=== PATIENT | male | born 1985 | race Caucasian/White ===

== ENCOUNTER 2023-01-04 09:11 | Outpatient (CLI) | payer BC, SELFPAY ==
--- NOTE | ~2023-01-04 | US_ITS ---
EXAMINATION: US abdomen complete DATE: 01/04/2023 10:26 INDICATION: R10.9 - Unspecified abdominal pain TECHNIQUE: Multiple grayscale and Doppler ultrasound images of the abdomen were obtained. COMPARISON: None available. FINDINGS: The visualized portions of the pancreas are normal. The liver is normal with normal echogen icity and echotexture. No surface nodularity. Normal hepatopetal flow in the main portal vein. The ga llbladder is normal with no abnormal wall thickening, pericholecystic fluid or stones. The common kerrie e duct measures 6 mm. There was no sonographic Pierson sign. The visualized portions of the inferior v mliler cava are normal. Mild fusiform dilation of the proximal abdominal aorta, to 3.1 cm. The right kidney measures 12.9 x 5.6 x 6.9 cm. The left kidney measures 12.6 x 6.5 x 5.4 cm. The kidn eys demonstrate normal parenchymal echogenicity. There is no hydronephrosis. The spleen is normal in appearance and measures 12 cm. IMPRESSION: Mild fusiform dilation of the proximal aorta to 3.1 cm, consider ultrasound aorta follow-up in 3 year s. Otherwise normal abdominal ultrasound findings. Reviewed, dictated and finalized at location K. IMPRESSION: Mild fusiform dilation of the proximal aorta to 3.1 cm, consider ultrasound aor ta follow-up in 3 years. Otherwise normal abdominal ultrasound findings.
--- NOTE | ~2023-01-04 | XR_ITS ---
EXAMINATION: XR UGI w small bowel DATE: 01/04/2023 14:11 INDICATION: Abdominal pressure after eating and drinking. TECHNIQUE: The patient drank thick barium, gas-producing crystals, and thin barium. Fluoroscopy of th e esophagus, stomach, and small bowel was performed. Fluoroscopy exposure time was 1.6 minutes. Radio graphs of the abdomen were obtained. The total number of images was 386. COMPARISON: None. FINDINGS: UPPER GASTROINTESTINAL SERIES: There is no mass or stricture of the esophagus. Esophageal motility is normal. There is no hiatal her zuly. There was no gastroesophageal reflux with provocative maneuvers. The stomach shows a normal fold ing pattern. SMALL BOWEL SERIES: The small bowel shows a normal folding pattern. Specifically, the terminal ileum is normal. Transit t paul to the colon was 3 hours 15 minutes. IMPRESSION: 1. Normal upper gastrointestinal series. 2. Normal small bowel series. Reviewed, dictated and finalized at location A.
== END 2023-01-04 09:12 | disposition home or self-care (01) ==
PROVIDERS: PCP Internal Medicine; Visit Provider Internal Medicine
DX: R10.9 Unspecified abdominal pain (principal); I77.819 Aortic ectasia, unspecified site
CPT/HCPCS: 74240; 74248; 76700

== ENCOUNTER 2023-01-12 12:54 | Outpatient (CLI) | payer BC, SELFPAY | END 2023-01-12 12:55 | disposition home or self-care (01) | LOC: ANHAUDIO 12:55 | PROVIDERS: PCP Internal Medicine; Visit Provider Otolaryngology | DX: H90.42 Sensorineural hearing loss, unilateral, left ear, with unrestricted hearing on the contralateral side (principal) | CPT/HCPCS: 92557; 92567 ==

== ENCOUNTER 2023-10-16 09:25 | Outpatient (CLI) | payer BC, SELFPAY ==
[2023-10-16 11:22] LABS: Influenza A QL RT-PCR Negative (Negative); Influenza B QL RT-PCR Negative (Negative); RSV RNA, RT-PCR Negative (Negative); SARS-CoV-2 RNA PCR Negative (Negative)
== END 2023-10-16 09:26 | disposition home or self-care (01) ==
LOC: ANHLAB 09:27
PROVIDERS: PCP Internal Medicine; Visit Provider Internal Medicine
DX: R11.0 Nausea (principal); R53.83 Other fatigue; R68.83 Chills (without fever); Z20.822 Contact with and (suspected) exposure to COVID-19
CPT/HCPCS: 87637

== ENCOUNTER 2024-08-01 08:10 | Outpatient (CLI) | payer BC, SELFPAY ==
[2024-08-28 20:20] VITALS: BMI 30.9
--- NOTE | 2024-08-28 20:20 | P.SLEEP_ITS ---
Sleep Study Date of Study: 08/01/24 Ordering Provider: Suha Woodward DO Interpreting Physician: Suha Woodward DO Sleep Study Type: Split Polysomnogram Height: 1.85 m Weight: 106.594 kg Body Mass Index: 30.9 Neck Circumference (inches): 17 Leckrone: 9 Reason for Sleep Study Snoring Sleep History The patient is a 39 year old male that had a sleep study ordered by his sleep physician for evaluation of sleep apnea. The patient rarely awakens from sleep short of breath. He occasionally awakens at night with heartburn, belching or cough. He constantly snores loudly enough that others complain. He occa sionally has trouble sleeping when he has a cold. He rarely wakes up gasping for air throughout the night. He occasionally has breathing problems at night observed by himself or others. He occasionally sweats excessively at night. He occasionally has heart palpitations or irregular heartbeats during the night. He occasionally falls asleep during the day but rarely while driving. He denies sleep paralysis, cataplexy and hypnagogic / hypnopompic hallucinations. He rarely has trouble at school or work due to sleepiness. He denies feeling afraid of going to sleep. He rarely has nightmares. He rarely remembers his dreams. He denies having thoughts racing through his mind. He denies feeling sad, depressed or anxious. He denies having muscular tension. He rarely notices parts of his body jerk. He denies kicking during the night. He denies having crawling and aching feelings in his legs and denies having leg pain during The night. He rarely grinds his teeth during sleep and never awakens with morning jaw pain. He is rarely bothered by pain during the day and never awakened by pain during the night. He rarely wakes up feeling stiff in the morning. He rarely wakes up with sore or achy muscles. He denies waking up with pain in the neck, spine and other joints. He goes to bed at midnight on weekdays and at 1:00 a.m. on the weekends. He is able to fall asleep immediately. He wakes up once at most throughout the night due to alcohol consumption. It takes him 30 minutes to fall back asleep. He wakes up at 6:00 a.m. on both weekdays and weekends. He typically gets 4-6 hours of sleep per night. He will stay in bed for 15 minutes after waking up in the morning. He currently lives with his and children. He denies consuming any caffeinated beverages within 2 hours of bedtime. He denies engaging in physical exercise before bedtime. He will watch television before falling asleep. He denies taking naps in the afternoon or the evening. He consumes 2 caffeinated beverages per day. He consumes 3 alcoholic beverages per day. He denies tobacco and recreational drug use. FOR[facility]LY [facility] Past Medical History Medical History COVID (~01/2024) Hypersomnolence BMI 31.0-31.9,adult Seborrheic keratosis, inflamed Keratosis ADD (attention deficit disorder) BMI 29.0-29.9,adult Vitamin D deficiency DJD (degenerative joint disease) of knee BMI 30.0-30.9,adult Chronic pain of right knee Encounter for routine adult health examination without abnormal findings On senior living drug therapy Benign essential hypertension Family History Family History Father Hypertension Grandparent Acute myocardial infarction Other Family history of malignant neoplasm Social History Social History Smoking status: Never smoker Second hand tobacco smoke exposure: No Alcohol intake: current Do You Feel Safe in your Home?: Yes Lack of Transportation: No Lack of Food: Never True Current Housing: I Have Housing Concerned About Future Housing: No Difficulty Paying Gas/Electric Bills: No Difficulty Paying for Meds: No Education: Master's Degree or Higher Difficulty w/ Childcare or Family Care: No Living arrangements: with family Occupation/Education: occupation Gender identity (if verbalized by the patient): Male Medications Home Medications ?Medication ?Instructions ?Recorded ?Confirmed ?Type cholecalciferol (vitamin D3) 25 75 mcg PO DAILY 12/22/22 06/13/24 History mcg (1,000 unit) capsule eszopiclone 2 mg tablet (Lunesta) 2 mg PO QHS #1 tablet 06/12/24 06/13/24 Rx methylphenidate HCl 10 mg tablet 10 mg PO BID #60 tabs 08/27/24 Rx (Ritalin) Sleep Procedure A full night split study using the [employer] multi-channel system recorded the standard physiologic parameters including EEG, EOG, submentalis EMG, anterior tibialis EMG, EKG, body position, nasal and oral airflow using nasal pressure sensor and thermistor.? Respiratory parameters of chest and abdominal movements were recorded with Respiratory Inductance Plethysmography belts. Oxygen saturation was recorded by pulse oximetry. Video monitoring was also performed. Sleep stages, periodic limb movements, and EEG arousals were scored in 30 second epochs according to the criteria of the AASM Scoring Manual. The Apnea-Hypopnea Index was calculated using [facility] guidelines for definition of hypopnea with 4% O2 desaturations while scoring respiratory events. Sleep Architecture During the diagnostic portion of the study, the total recording time was 170.8 minutes. The total sleep time was 139.0 minutes. Sleep latency was 22.3 minutes.? REM sleep was not achieved during this portion of the study. Sleep Efficiency was 81.4%. The patient had 2 awakenings for an awakening index of 0.9. Wake after sleep onset time was 9.5 minutes. The patient spent 10.5 minutes, 7.6% of total sleep time in Stage N1. The patient spent 99.5 minutes, 71.6% in Stage N2. The patient spent 29.0 minutes, 20.9% in Stage N3. The patient spent 0.0 minutes, 0.0% in Stage REM sleep. At 01:11:10 AM the patient was placed on PAP treatment and was titrated at pres sures ranging from 5 cm H20 up to 11 cm H20 with EPR of 2. During the treatment portion of the study, the total recording time was 296.2 minutes.? The total sleep time was 207.0 minutes. Sleep latency was 25.0 minutes. REM latency was 139.5 minutes. Sleep Efficiency was 69.9%. Wake after Sleep Onset time was 64.0 minutes. The patient spent 45.0 minutes, 21.7% of total sleep time in Stage N1. The patient spent 109.0 minutes, 52.7% in Stage N2. The patient spent 0.0 minutes, 0.0% in Stage N3. The patient spent 53.0 minutes, 25.6% in Stage REM. Respiratory Analysis During the diagnostic portion of the study, the patient had 13 hypopneas, 31 obstructive apneas and 2 central apneas for an overall Apnea Hypopnea Index of 19.9 events per hour. The REM Apnea Hypopnea Index was 0. The NREM Apnea Hypopnea Index was 19.9. The patient had a Central Apnea Hypopnea Index of 0.9. There was no evidence of Enrike-Luis Respirations. During the treatment portion of the study, the patient had 5 hypopneas, 1 obstructive apnea and 24 central apneas for an overall Apnea Hypopnea Index of 8.7 events per hour. The REM Apnea Hypopnea Index was 1.1. The NREM Apnea Hypopnea Index was 11.3. The patient had a Central Apnea Hypopnea Index of 7.0. There was no evidence of Enrike-Luis Respirations. The patient was started on CPAP 5 cm H2O and titrated to CPAP 11 cm H2O with EPR of 2 due to central apneas and hypopneas. The patient was able to fall asleep starting on CPAP 5 cm H2O. The patient was able to achieve REM sleep starting on CPAP 10 cm H2O with EPR of 2. On CPAP 11 cm H2O with EPR of 2, the patient spent 72.5 minutes in NREM and 38.5 minutes in REM with no respiratory events, resulting in an AHI of 0. The patient had a sleep efficiency of 94.5% on this pressure setting. Arousals During the diagnostic portion of the study, there were a total of 68 arousals for an arousal index of 29.4.? There were 29 respiratory arousals for an index of 12.5. There were 0 periodic limb movement arousals for an index of 0.? There were 8 isolated limb movement arousals for an index of 3.5. There were 31 spontaneous arousals for an index of 13.4. During the treatment portion of the study, there were a total of 123 arousals for an index of 35.7.? There were 58 respiratory arousals for an index of 16.8. There were 0 periodic limb movement arousals for an index of 0.? There were 11 isolated limb movement arousals for an index of 3.2. There were 55 spontaneous arousals for an index of 15.9. Periodic Limb Movements During the diagnostic portion of the study, the patient had 8 isolated limb movements with an index of 3.5. The patient had 0 periodic limb movements with an index of 0. The patient had a total of 8 limb movements with a total limb movement index of 3.5. During the treatment portion of the study, the patient had 20 isolated limb movements with an index of 5.8. The patient had 0 periodic limb movements with an index of 0. The patient had a total of 20 limb movements with a total limb movement index of 5.8. Oximetry Data During the diagnostic portion of the study, the patient had an average oxygen saturation of 96.4% in wake with a minimum oxygen saturation of 91% and a m aximum oxygen saturation of 100%. The patient had an average oxygen saturation of 95.2% in sleep with a minimum oxygen saturation of 89.0% and a maximum oxygen saturation of 98.0%. The patient had 49 oxygen desaturations resulting in an Oxygen Desaturation Index of 21.2. The patient spent 0 minutes of total sleep time with an oxygen saturation less than 88%. During the treatment portion of the study, the patient had an average oxygen saturation of 97.1% in wake with a minimum oxygen saturation of 93.0% and a maximum oxygen saturation of 99.0%. The patient had an average oxygen saturation of 97.1% in sleep with a minimum oxygen saturation of 91.0% and a maximum oxygen saturation of 100.0%. The patient had 25 oxygen desaturations resulting in an Oxygen Desaturation Index of 7.2. The patient spent 0 minutes of total sleep time with an oxygen saturation less than 88%. Snoring Profile Moderate to loud snoring was present in the baseline portion of the study. The snoring resolved once the patient was titrated to 7 cm H2O. Cardiac Profile The EKG lead showed normal sinus rhythm with intermittent bigeminy. During the diagnostic portion of the study, the average pulse rate was 56.0 bpm.? The minimum pulse rate was 48.0 bpm. The maximum pulse rate was 74.0 bpm. During the treatment portion of the study, the average pulse rate was 47.5 bpm.? The minimum pulse rate was 41.0 bpm. The maximum pulse rate was 63.0 bpm. EEG Profile No signs of seizure activity seen. Assessment and Plan Assessment and Plan (1) Treatment-emergent central sleep apnea: Code(s): G47.39 - Other sleep apnea Status: Acute Assessment and Plan: In the diagnostic portion of the study, the patient had an overall AHI of 19.9 with desaturation down to 89%. This is consistent with moderate sleep apnea. The patient was started on CPAP 5 cm H2O and titrated to CPAP 11 cm H2O with EPR of 2 due to central apneas and hypopneas. The patient's sleep apnea resolved on the final pressure setting. I recommend that the patient be prescribed Resmed CPAP 11 cm H2O with EPR of 2, size medium Resmed AirTouch F20 full face mask, CPAP filters/tubing and heated humidity. This should be used with all episodes of sleep.? Compliance should be reviewed within 31-90 days of starting therapy for usage greater than 4 hours per night greater than 70% of the nights. The patient should be asked about symptoms such as?excessive daytime sleepiness, quality of sleep, decreased nocturia, increased?mental functioning such as memory, mood, and concentration. Data The data obtained during this sleep study is adequate for interpretation. Certification This sleep study has been reviewed by a board certified sleep medicine phys jose eduardo.
== END 2024-08-02 06:42 | disposition home or self-care (01) ==
LOC: ANHCSM 08:11
PROVIDERS: PCP Internal Medicine; Visit Provider Family Medicine
DX: G47.39 Other sleep apnea (principal); G47.9 Sleep disorder, unspecified
CPT/HCPCS: 95811